=== PATIENT | female | born 1950 | race Hispanic/Latino ===

== ENCOUNTER 2023-03-30 06:01 | Observation (INO) | payer OTHER ==
[2023-03-25 10:03] LABS: Absolute Lymphocytes (CBC) 1.7 K/uL (0.7-4.9); Hematocrit 37.7 % (36.0-45.0); Lymphocytes % 32.8 % (15.3-44.8); MCV 97.9 fL (80-100); MPV 7.1 fL (7.6-11.3); RBC Red Blood Cell Count 3.85 M/uL (3.86-4.86)
[2023-03-25 10:17] LABS: Protime INR 1.15
--- NOTE | 2023-03-25 11:23 | RAD REPORT ---
EXAM DESCRIPTION: [facility] Pa And Lat (2 Views)03/25/2023 9:54 am CLINICAL HISTORY: PREOP for knee replacement. Hypertension COMPARISON: Chest Pa And Lat (2 Views) dated 04/07/2016; CHEST PA AND LAT 2 VIEW dated 11/05/2010; CHEST PA AND LAT 2 VIEW dated 06/11/2009; CHEST PA AND LAT 2 VIEW dated 10/05/2008 TECHNIQUE: PA and lateral views of the chest. FINDINGS: The lungs are clear. No pneumothorax or effusion. The cardiomediastinal contours are unre markable. IMPRESSION: No acute cardiopulmonary process.
--- NOTE | 2023-03-25 16:27 | EKG ---
Test Date: 2023-03-25 Test Time: 09:35:03 Steam Tender: NEGIN MEASUREMENT RESULTS: Intervals: Rate: 72 NC: 148 QRSD: 78 QT: 386 QTc: 422 [place]: P: 33 NC: 148 QRS: 36 T: 51 INTERPRETIVE STATEMENTS: Normal sinus rhythm Possible Left atrial enlargement Borderline ECG Compared to ECG 04/07/2016 14:20:23 No significant changes Electronically Signed On 03-25-23 16:27:04 CDT by Yasmany Callaway
[2023-03-30] MEDS ORDERED: CEFAZOLIN SODIUM 1 GM/VIAL ONE (06:28)
[2023-03-30] MEDS ORDERED: Ringers Lactate 1,000 ML IV ONE ×2 (06:28→09:30)
[2023-03-30] MEDS ORDERED: LIDOCAINE 2% MPF 5 ML VIAL ONE ×2 (06:39→07:41)
[2023-03-30] MEDS ORDERED: MIDAZOLAM HCL 2 MG/2 ML INJ ONE ×2 (06:40→07:09)
[2023-03-30] MEDS ORDERED: EPINEPHRINE/PF 1 MG/ML AMP ONE (06:40)
[2023-03-30] MEDS ORDERED: FENTANYL CITR 100 MCG/2 ML ONE (06:40)
[2023-03-30] MEDS ORDERED: dexAMETHasone 4 MG/ML VIAL ONE (06:40)
[2023-03-30] MEDS ORDERED: BUPIVACAINE 0.25% PF 30 ML VIAL ONE ×2 (06:42→07:08)
[2023-03-30] MEDS ORDERED: TRANEXAMIC ACID 1,000 MG/10 ML VIAL IV ONE (07:08)
[2023-03-30] MEDS ORDERED: propofoL 200 MG/20 ML VIAL IV ONE (07:41)
[2023-03-30] MEDS ORDERED: ONDANSETRON 4 MG/2 ML VIAL ONE (07:42)
[2023-03-30] MEDS ORDERED: HYDROMORPHONE HCL 1 MG/ML INJ ONE (07:46)
[2023-03-30] MEDS ORDERED: KETAMINE HCL IN 0.9 % NACL 50 MG/5 ML SYRINGE IV ONE (09:07)
[2023-03-30] MEDS ORDERED: KETOROLAC 30 MG/ML INJ ONE (09:08)
[2023-03-30] MEDS ORDERED: EPHEDRINE SULF 50 MG/ML VIAL ONE (09:10)
--- NOTE | 2023-03-30 10:38 | P.BOP ---
Preoperative diagnosis: right knee osteoarthritis Postoperative diagnosis: same Primary procedure: right total knee arthroplasty Pizza Maker: NONE,NONE Estimated blood loss: 40 cc Specimen: right knee bone remnants Findings: see dictation Anesthesia: General Complications: None Implants: Biomet Roger Persona 8 CR femur, E tibia, 10 CR poly, 29 patella Fluids & blood products: per anesthesia record; TT: 71 mins @ 300 mmHg Transferred to: Recovery Room Condition: Good
[2023-03-30] MEDS ORDERED: DOCUSATE NA 100 MG CAP PO PRN (10:41)
[2023-03-30] MEDS ORDERED: ONDANSETRON 4 MG/2 ML VIAL IV PRN (10:41)
[2023-03-30] MEDS ORDERED: ACETAMINOPHEN 325 MG TABLET PO PRN (10:41)
[2023-03-30] MEDS ORDERED: TRAMADOL HCL 50 MG TAB PO PRN (10:44)
[2023-03-30] MEDS: HYDROMORPHONE HCL 1 MG/ML INJ ONE ×2 (11:13→11:25)
[2023-03-30 11:18] LABS: Hematocrit 33.4 % (36.0-45.0)
--- NOTE | 2023-03-30 11:48 | RAD REPORT ---
EXAM DESCRIPTION: RAD - Knee Right 2 View - 03/30/2023 11:32 am CLINICAL HISTORY: Right knee surgery FINDINGS: Right knee prosthesis is in good position. No fracture or dislocation
[2023-03-30 12:32] VITALS: BMI 29.2
--- NOTE | 2023-03-30 14:04 | P.OP ---
Preoperative diagnosis: right knee osteoarthritis Postoperative diagnosis: same Primary procedure: right total knee arthroplasty Anesthesia: general Estimated blood loss: 40 cc Specimen: right knee bone remnants Findings: see dictation Operative Technique: Indication For Procedure: Kayla is a 72 year-old female presenting to my clinic with signs, symptoms and x-ray findings consistent with severe right knee osteoarthritis. I discussed with the patient at length risks and benefits associated with operative and nonoperative treatment. She had failed conservative treatment measures and had significant difficulties with ADLs secondary to her pain. We discussed operative treatment and elected to proceed with right total knee arthroplasty. She expressed understanding and elected to proceed with operative treatment. Description Of Procedure: After informed consent was obtained, the patient was identified in the preoperative holding area. The right lower extremity was ma rked. The patient was then taken to the PACU where she underwent a right lower extremity adductor canal block performed by Anesthesia. She was then taken to the operating room, transferred to the operating table in supine fashion, and placed under general anesthesia. The right lower extremity was then prepped and draped in usual sterile fashion. A time-out was initiated. The correct patient and procedure were confirmed and identified. The patient did receive her preoperative prophylactic antibiotics. The right lower extremity was then exsanguinated and tourniquet was inflated to 300 mmHg. Approximately 15 cm longitudinal incision was made centered over the anterior aspect of the right knee. Dissection was then taken to the extensor mechanism and a medial parapatellar arthrotomy was performed. The patella was everted and dislocated laterally and the knee was flexed and the fat pad was excised. Medial and lateral meniscus and ACL were all excised exposing the distal femur. Excess hypertrophic synovium was also excised within the suprapatellar pouch. The patient had an MRI of her right knee preoperatively for surgical planning and creation of cutting blocks. The cutting block was then placed over the distal femur and pins were then placed. The distal femoral cutting block was then placed over the pins. An yevgenyi wing was then used to ensure proper depth cut and the distal femur was then cut. The chamfer cutting guide was then placed over the distal end of the femur. Anterior, posterior cuts as well as anterior and posterior chamfer cuts were then made again confirming proper depth of the cut using an Yevgeniy wing. Excess bone remnants were then sent to pathology for further evaluation. Next, attention was taken to the proximal tibia. A tibial jig and tibial cutting block was then placed on proximal aspect of the right tibia and locked into position. Pins were then placed and alignment guide was then used to confirm proper alignment of the cut and then coronal and sagittal planes. Once this was confirmed, the cutting jig was placed over the pins and the proximal tibia was cut. Sizing trays were then selected and size 10 mm spacer was used and there was good overall balance in flexion and extension. Next, the trial implants were then placed using the size 8 standard CR femur and a size E tibia and an 10 mm CR poly. There was overall good range of motion and good stability. The trial implants were then removed. The wound was then irrigated thoroughly with normal saline and the knee was then injected with 30 cc of 0.5% Marcaine both in the posterior capsule and medial and lateral gutters as well as quadriceps tendon and periosteum. The tibia was then punched. The femur was drilled. The cement was then prepared on the back table. Cement was then placed first on the tibial surface followed by size E tibia. Excess cement was removed with [place] elevators. Size 8 standard CR femur was then placed on the distal femur after cement was placed on the distal femur. Excess cement was then removed and a size 10 mm CR trial poly was then placed. The knee was held in extension as the cement hardened. Undersurface of the patella was prepared debriding osteophytes using rongeurs as well as osteophytes. Cement was placed on the undersurface of the patella after it was cut and a size 29 patella was placed. Once the cement was hardened, the knee was ranged, there was good overall stability both in flexion, extension and as well as stability with varus and valgus stresses. Trial poly was then removed and a size 10 mm CR poly was then placed and locked into position. The knee was then ranged again. There was good overall range of motion both for flexion and extension with good stability. The wound was then irrigated again thoroughly with normal saline using pulse lavage. Tourniquet was let down. Hemostasis was achieved using Bovie electrocautery. Extensor mechanism was then approximated using a #1 Vicryl both in interrupted and running fashion. The fascia was then approximated using 0 Vicryl. Subcutaneous tissue was approximated with a 2-0 Vicryl. Skin was approximated using lesvia. Sterile dressings were applied. The patient was awakened and transferred back in stable condition Complications: None Implants: Biomet Roger Persona 8 CR femur, E tibia, 10 CR poly, 29 patella Fluids & blood products: per anesthesia record; TT: 71 mins @ 300 mmHg Transferred to: Recovery Room Condition: Good
[2023-03-30] MEDS: HYDROCODONE/APAP 7.5/325 MG TAB PO PRN ×2 (15:19→20:44)
[2023-03-30] MEDS: CEFAZOLIN 1 GM in NA CHLORIDE 0.9% 50 ML IVPB SCH (16:24)
[2023-03-31] MEDS: HYDROCODONE/APAP 7.5/325 MG TAB PO PRN ×4 (00:29→14:12)
[2023-03-31] MEDS: CEFAZOLIN 1 GM in NA CHLORIDE 0.9% 50 ML IVPB SCH ×2 (00:29→08:57)
[2023-03-31 02:50] LABS: Hematocrit 31.2 % (36.0-45.0)
[2023-03-31] MEDS ORDERED: ENOXAPARIN 30 MG/0.3 ML SQ SCH (06:00)
[2023-03-31 08:33] VITALS: BP 140/66; TEMP 98.4
[2023-03-31] MEDS ORDERED: HOME MED 1 EA UNK (Netarsudil Mesylate [Rhopressa] 2.5 ML Drops) OPTH SCH (09:00)
[2023-03-31] MEDS ORDERED: HOME MED 1 EA UNK [BIMATOPROST OPHTH DROPS/2.5 ML BTL] OPTH SCH (09:00)
[2023-03-31] MEDS ORDERED: CELECOXIB 100 MG CAPSULE PO SCH (09:00)
[2023-03-31 10:09] VITALS: O2SAT 100
--- NOTE | 2023-03-31 12:49 | P.DS ---
Admission Date: 03/30/23 Discharge Date: 03/31/23 Disposition: DC HOME/HOME HEALTH CARE Discharge Condition: GOOD Reason for Admission: s/p R TKA Consultations: None Procedures: Right Total knee arthroplasty 03/30/2023 Brief History of Present Illness: Kayla is a 72-year-old female that underwent right total knee arthroplasty on March 30, 2023 and admitted to floor postoperatively in stable condition Hospital Course: Kayla underwent right total knee arthroplasty without complication. She was admitted to the floor in stable condition. Physical therapy was consulted to aid with mobilization. She was started on Lovenox for DVT prophylaxis. She was discharged on March 31, 2023 in stable condition. She will have home health physical therapy. She was discharged with Xarelto to take once daily for DVT prophylaxis. She will follow-up in 2 weeks for wound check and staple removal. Vital Signs/Physical Exam: Temp Pulse Resp BP Pulse Ox 98.4 F 80 16 140/66 100 03/31/23 08:00 03/31/23 08:00 03/31/23 11:04 03/31/23 08:00 03/31/23 11:04 Laboratory Data at Discharge: WBC 5.10 thou/uL (4.3-10.9) 03/25/23 09:43 Hgb 10.6 g/dL (12.0-15.0) L 03/31/23 02:29 Hct 31.2 % (36.0-45.0) L 03/31/23 02:29 Plt Count 268 thou/uL (152-406) 03/25/23 09:43 PT 12.7 SECONDS (9.5-12.5) H 03/25/23 09:43 INR 1.15 03/25/23 09:43 APTT 34.0 SECONDS (24.3-36.9) 03/25/23 09:43 Sodium 139 mEq/L (136-145) 03/25/23 09:43 Potassium 4.0 mEq/L (3.5-5.1) 03/25/23 09:43 BUN 19 mg/dL (7-18) H 03/25/23 09:43 Creatinine 0.84 mg/dL (0.55-1.02) 03/25/23 09:43 Glucose 89 mg/dL (74-106) 03/25/23 09:43 Home Medications: Bimatoprost [[place] Opthalmic Drops*] 1 drops OPTH DAILY 03/25/23 Netarsudil Mesylate [Rhopressa] 1 drop OP DAILY 03/25/23 Tramadol HCl [Ultram] 50 mg PO BID 03/25/23 Hydrocodone 7.5/APAP 325 [[place] 7.5/325 mg*] 1 tab PO Q4H PRN tab 03/31/23 traMADol HCL [Ultram*] 50 mg PO Q6H PRN tab 03/31/23 Physician Discharge Instructions: Patient will keep the dressing clean dry and intact. She will use bilateral thigh-high OLGA hose for 2 weeks. She will begin Xarelto tomorrow April 01 and take once daily for 11 days. Diet: Regular Activity: Weight bearing as tolerated Followup: Stephen Hoffman MD [Primary Care Provider] - Carroll Soliman MD [ACTIVE - CAN ADMIT] - 1-2 Weeks
[2023-03-31] MEDS ORDERED: PNEUMOCOCCAL VACCINE 0.5 ML IMVAC ONE (15:00)
== END 2023-03-31 14:32 | disposition home health service (06) ==
LOC: OR 06:01 → 2ND 10:41
PROVIDERS: ADMIT Orthopaedic Surgery Sports Medicine; ATTEND Orthopaedic Surgery Sports Medicine
PROC: 0SRC069 Replacement of Right Knee Joint with Oxidized Zirconium on Polyethylene Synthetic Substitute, Cemented, Open Approach (ICD-10-PCS; principal; 2023-03-30 08:00)
DX: M17.11 Unilateral primary osteoarthritis, right knee (principal)
CPT/HCPCS: 93005; 85025; 80048; 36415 ×3; 85610; 88304; 88311; 85730; 85018 ×2; 85014 ×2; 71046; 73560; 97110; 97116 ×2; 97139; 97161; 97530 ×2; 94010; 27447; C1776; J2704; J1100; J0171; J2001 ×2; J1650; J2250 ×2; J3010; J1170 ×2; J2405; J7120 ×2; J0690 ×4; G0378